=== PATIENT | female | born 2000 | race African-American/Black ===

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

== ENCOUNTER 2023-12-27 15:52 | Observation (INO) ==
[2023-12-27] MEDS ORDERED: Prochlorperazine 5 mg/ml 2 ml VIAL (10 mg) IV PRN (16:12)
[2023-12-27] MEDS: Lactated Ringers 1000 ml BAG 1,000 ML IV ONE (16:25)
[2023-12-27 16:50] LABS: Hemoglobin 11.5 g/dL (11.5-14.3); Mean Corpuscular Hgb Conc 33.9 g/dL (31-36); Mean Corpuscular Volume 85.6 fL (80-97); Platelet Count 170 10^3/uL (150-450); Red Blood Count 3.97 10^6/uL (3.63-4.92); Red Cell Distribution Width 12.8 % (12-17); White Blood Count 22.9 10^3/uL (3.8-11.8)
[2023-12-27 17:24] LABS: Albumin 3.7 g/dL (3.2-5.2); Albumin/Globulin Ratio 1.7 (1-3); Calcium 9.2 mg/dL (8.6-10.3); Creatinine, Serum 0.47 mg/dL (0.51-0.95); Globulin 2.2 g/dL (2-4); Potassium 3.3 mmol/L (3.5-5.0); Total Bilirubin 0.5 mg/dL (0.2-1.0); Total Protein 5.9 g/dL (6.4-8.9); eGFR CKD-EPI 138.8 (>60)
[2023-12-27 17:25] LABS: Urine Appearance Turbid; Urine Bilirubin Negative (Negative); Urine Blood Negative (Negative); Urine Color Yellow; Urine Glucose Negative (Negative); Urine Ketones 1+ (Negative); Urine Nitrite Negative (Negative); Urine Protein Trace (Negative); Urine Specific Gravity 1.019 (1.002-1.030); Urine Urobilinogen Negative (Negative)
[2023-12-27] MEDS: ceFOXitin 2 GM IVPREMIX 2 GM/50 ML BAG IVPB ONE (17:40)
[2023-12-27] MEDS: HYDROmorphone 0.5 MG/0.5 ML SYRINGE IV SLOW PU PRN (17:43)
[2023-12-27 17:48] LABS: Urine Benzodiazepine Screen None Detected (None Detect); Urine Cannabinoids Screen None Detected (None Detect); Urine Opiates Screen None Detected (None Detect)
[2023-12-27 18:00] LABS: ABS Lymphocytes 0.7 10^3/uL (1.0-4.8); ABS Monocytes 1.5 10^3/uL (0.0-0.9); ABS Neutrophils 20.7 10^3/uL (1.5-7.6); Lymphocyte % 3.1 %
[2023-12-27 22:09] LABS: INR 1.06 (0.83-1.13)
[2023-12-27] MEDS ORDERED: Zosyn per Pharmacy NOTE FOLLOW UP SCH ×2 (23:00)
[2023-12-27] MEDS: ZOSYN 3.375 GM x ONE DOSE over 30 miuntes IV (23:49)
[2023-12-28] MEDS: Lactated Ringers 1000 ml BAG 1,000 ML IV ONE (00:34)
[2023-12-28] MEDS: Lactated Ringers 1000 ml BAG 1,000 ML IV SCH (01:30)
[2023-12-28 01:52] LABS: C Reactive Protein 7.42 mg/L (<8.01)
[2023-12-28] MEDS ORDERED: Lactated Ringers 1000 ml BAG 1,000 ML IV SCH (03:10)
[2023-12-28 03:27] LABS: Erythrocyte Sed Rate 29 mm/Hr (0-19)
[2023-12-28] MEDS: ZOSYN 3.375 GM Q8H per EXTENDED INFUSION IV SCH (04:15)
[2023-12-28] MEDS: NS 0.9% 1000 ml BAG 1,000 ML IV SCH (04:16)
[2023-12-28] MEDS: NS 0.9% 1000 ml BAG 1,000 ML IV ONE (04:33)
[2023-12-28 06:34] LABS: ABS Lymphocytes 0.8 10^3/uL (1.0-4.8); ABS Monocytes 0.8 10^3/uL (0.0-0.9); Eosinophil % 0.1 %; Hemoglobin 9.4 g/dL (11.5-14.3); Lymphocyte % 4.9 %; Mean Corpuscular Hemoglobin 29.8 pg (27-33); Mean Corpuscular Hgb Conc 34.9 g/dL (31-36); Mean Corpuscular Volume 85.5 fL (80-97); Mean Platelet Volume 9.1 fL (7.5-11.2); Platelet Count 136 10^3/uL (150-450); Red Blood Count 3.15 10^6/uL (3.63-4.92); Red Cell Distribution Width 12.7 % (12-17); White Blood Count 16.6 10^3/uL (3.8-11.8)
[2023-12-28 06:52] LABS: Calcium 7.9 mg/dL (8.6-10.3); Creatinine, Serum 0.37 mg/dL (0.51-0.95); Magnesium 1.4 mg/dL (1.9-2.7); Phosphorus 3.3 mg/dL (2.5-5.0); Potassium 3.3 mmol/L (3.5-5.0); eGFR CKD-EPI 147.1 (>60)
[2023-12-28] MEDS ORDERED: Sulfur Hexaflouride MICROSPHR 25 MG VIAL IV ONE (08:30)
[2023-12-28] MEDS: Buffered Lidocaine 1% SYRIN 1 ml INTRADERM ONE (08:32)
[2023-12-28] MEDS ORDERED: Vancomycin per Pharmacy 1 EA NOTE FOLLOW UP SCH (09:00)
[2023-12-28] MEDS: oxyCODONE SR 10 mg TAB PO ONE (09:40)
[2023-12-28] MEDS ORDERED: Acetaminophen IV 1 GM/100ML 1,000 MG/100 ML BAG IV PRN (09:45)
[2023-12-28] MEDS: Norepinephrine 4 MG/250mL D5W 4,000 MCG/250 ML BAG IV SCH (09:51)
[2023-12-28] MEDS ORDERED: Vancomycin Trough Check NOTE FOLLOW UP ONE (11:30)
[2023-12-28] MEDS: Vancomycin 1,000 MG in NS 0.9% 250 ml 250 ML IVPB ONE (11:56)
[2023-12-28] MEDS: Potassium Chlor 20 meq TAB.ER PO ONE (13:01)
[2023-12-28] MEDS: Magnesium Sulfate 2 gm BAG 2 GM/50 ML BAG IVPB ONE (13:10)
[2023-12-28] MEDS: Potassium EFFERVES 25 meq TAB PO ONE (13:34)
[2023-12-28] MEDS: Potassium Chloride IV 20 MEQ in Lactated Ringers 1000 ml BAG 1,000 ML IVPB SCH (14:34)
[2023-12-28] MEDS: Betamethasone 6 mg/ml 5 ml VIAL IM SCH (15:29)
[2023-12-28 18:05] VITALS: BP 113/71
[2023-12-28] MEDS ORDERED: Vancomycin 1,250 MG in NS 0.9% 250 ml 250 ML IVPB SCH (20:00)
[2023-12-29] MEDS ORDERED: Vancomycin Trough Check NOTE FOLLOW UP ONE (11:30)
== END 2023-12-28 18:30 | disposition short-term general hospital (02) ==
LOC: MCHOBOUT 15:52 → INTOOBSV 12-28 07:59 → MCHOB 12-28 07:59 → ICU 12-28 09:29
PROVIDERS: ADMIT Obstetrics & Gynecology; ATTEND Internal Medicine Critical Care Medicine

== ENCOUNTER 2024-02-14 07:09 | Inpatient (IN) ==
[2024-02-14] MEDS ORDERED: Lidocaine 1% VIAL 10 MG/ML 30 ML VIAL INJ PRN (10:15)
[2024-02-14] MEDS: Lactated Ringers 1000 ml BAG 1,000 ML IV ONE (10:27)
[2024-02-14 10:31] LABS: ABS Eosinophils 0.2 10^3/uL (0.0-0.5); ABS Monocytes 0.9 10^3/uL (0.0-0.9); ABS Neutrophils 8.1 10^3/uL (1.5-7.6); ABS Nucleated RBC 0.01 10^3/ul; Eosinophil % 1.8 %; Hematocrit 29.4 % (35-45); Hemoglobin 9.8 g/dL (11.5-14.3); Lymphocyte % 17.7 %; Mean Corpuscular Hemoglobin 27.1 pg (27-33); Mean Corpuscular Hgb Conc 33.5 g/dL (31-36); Mean Platelet Volume 8.8 fL (7.5-11.2); Nucleated Red Blood Cells % 0.1 %/100WBC (0.0-0.8); Platelet Count 171 10^3/uL (150-450); Red Blood Count 3.63 10^6/uL (3.63-4.92); Red Cell Distribution Width 13.5 % (12-17); White Blood Count 11.2 10^3/uL (3.8-11.8)
[2024-02-14] MEDS: Oxytocin in LR 20,000 MILLI.UNIT/1,000 ML BAG IV SCH (10:38)
[2024-02-14] MEDS: Calcium Carb (TUMS) 500 mg CHEW TAB PO PRN (11:22)
[2024-02-14 12:29] LABS: Urine Appearance Turbid; Urine Bilirubin Negative (Negative); Urine Blood Negative (Negative); Urine Color Light-Yellow; Urine Glucose Negative (Negative); Urine Ketones Negative (Negative); Urine Nitrite Negative (Negative); Urine Protein Negative (Negative); Urine Specific Gravity 1.012 (1.002-1.030); Urine Urobilinogen Negative (Negative)
[2024-02-14 12:32] LABS: Urine Amorphous Crystals Present /HPF (Absent); Urine Bacteria 1+ /HPF (Absent); Urine Red Blood Cell Trace(0-2/hpf) /HPF (0-Trace); Urine Squamous Epithelial Cell Present /HPF (Absent); Urine White Blood Cell Trace(0-5/hpf) /HPF (0-Trace)
[2024-02-14 13:02] LABS: Urine Benzodiazepine Screen None Detected (None Detect); Urine Cannabinoids Screen Presumptive Positive (None Detect); Urine Opiates Screen None Detected (None Detect)
[2024-02-14] MEDS: Lactated Ringers 1000 ml BAG 1,000 ML IV SCH (15:36)
[2024-02-14] MEDS: miSOPROStol 100 mcg TAB ONE ×2 (17:04→22:13)
[2024-02-14] MEDS: Buffered Lidocaine 1% SYRIN 1 ml INTRADERM ONE (20:02)
[2024-02-15] MEDS: miSOPROStol 100 mcg TAB ONE (02:48)
[2024-02-15] MEDS: Lactated Ringers 1000 ml BAG 1,000 ML IV ONE ×2 (06:39→08:07)
[2024-02-15] MEDS: Lidocaine 1.5% EPI 1:200,000 30 ML SDV ONE (06:40)
[2024-02-15] MEDS: OBEPIDURAL (200 ML) 200 ML EPIDURAL ONE (06:40)
[2024-02-15] MEDS: fentaNYL 100 mcg/2 ml 50 MCG/ML VIAL IV SLOW PU ONE (06:47)
[2024-02-15] MEDS ORDERED: Phenylephrine 40 mcg/mL 10mL (400mcg) SYRINGE IV PUSH PRN ×2 (07:45)
[2024-02-15] MEDS ORDERED: Sodium Citrate/Citric Acid LIQ 15 ML UDC PO PRN (07:45)
[2024-02-15] MEDS ORDERED: Lactated Ringers 1000 ml BAG 1,000 ML IV SCH ×2 (08:00→17:00)
[2024-02-15] MEDS: OBEPIDURAL (200 ML) 200 ML EPIDURAL SCH (08:05)
[2024-02-15] MEDS ORDERED: Dibucaine 1% OINT 28.35 GM TUBE PR PRN (16:47)
[2024-02-15] MEDS ORDERED: Tetan/Diph/Pertus SYR(Tdap) 0.5 ML SYR(BOOSTRIX) use SYR contains LATEX IM ONE (16:47)
[2024-02-15] MEDS ORDERED: Oxytocin in LR 20,000 MILLI.UNIT/1,000 ML BAG IV SCH (16:50)
[2024-02-15] MEDS: Witch Hazel PAD JAR TOPICAL PRN (18:14)
[2024-02-16 08:54] LABS: ABS Eosinophils 0.2 10^3/uL (0.0-0.5); ABS Lymphocytes 1.9 10^3/uL (1.0-4.8); ABS Monocytes 1.2 10^3/uL (0.0-0.9); ABS Neutrophils 13.5 10^3/uL (1.5-7.6); Eosinophil % 1.3 %; Hematocrit 32.4 % (35-45); Hemoglobin 10.9 g/dL (11.5-14.3); Lymphocyte % 11.1 %; Mean Corpuscular Hgb Conc 33.8 g/dL (31-36); Mean Corpuscular Volume 79.9 fL (80-97); Mean Platelet Volume 8.7 fL (7.5-11.2); Platelet Count 197 10^3/uL (150-450); Red Blood Count 4.05 10^6/uL (3.63-4.92); Red Cell Distribution Width 13.9 % (12-17); White Blood Count 16.9 10^3/uL (3.8-11.8)
[2024-02-17 07:07] VITALS: BP 106/70
== END 2024-02-17 10:22 | disposition home or self-care (01) | DRG 560 ==
LOC: MCHOBOUT 07:09 → MCHOB 09:34
PROVIDERS: ATTEND Midwife